=== PATIENT | male | born 2000 | race Caucasian/White ===

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

== ENCOUNTER 2021-07-24 22:15 | Inpatient (IN) | payer OTHER, SELFPAY ==
[2021-07-24 22:49] VITALS: BP 147/80; PULSE 89; RESP 20; TEMP 37.6; O2SAT 95; BMI 48.7
--- NOTE | 2021-07-24 23:35 | ED.EXTPRO ---
HPI - Extremity Problem General Chief complaint: Extremity Problem Stated complaint: tattoo infected Time Seen by Provider: 07/24/21 23:35 Source: patient Mode of arrival: ambulatory Limitations: no limitations History of Present Illness HPI Narrative: This is a 21-year-old male presenting to the emergency department with right posterior calf pain, swelling and irritation status post getting a tattoo. Patient tells me got a tattoo 2 days ago, and he has noticed that the area has become very red, swollen, warm. Subjective fevers/chills. Denies chest pain, shortness of breath, nausea, vomiting. Patient tells me that the use clean needles for this tattoo. He denies any discharge from the area. Patient tells me that he has got intact ooze in the past and this is never happened to him. Onset (ago): day(s) (3) Pain Consistency: constant Location: right Quality: burning Radiation: none Relieving factors: nothing Exacerbating factors: nothing Associated symptoms: denies other symptoms Related Data Allergies Allergy/AdvReac Type Severity Reaction Status Date / Time No Known Allergies Allergy Verified 07/24/21 22:53 Review of Systems Review of Systems: Constitutional : No Fever, No Chills, Cardiovascular : No Chest Pain, No SOB Respiratory : No Dyspnea Gastrointestinal : No abdominal pain Musculoskeletal : No Joint Swelling Skin : + rash, No skin laceration Neuro : No Weakness, No Numbness Psych : No SI/HI Yes all other systems are reviewed and are negative [facility] Past Medical History Attestation statement: The following information was validated with the patient. Source: old records reviewed and nursing notes reviewed Social History Social History Advance Directives: No Advance Directives Information Provided: No Physical Exam Vital Signs: Vital Signs: Last Vital Signs Temp 98.4 F 07/25/21 00:31 Pulse 80 07/25/21 00:31 Resp 16 07/25/21 00:31 BP 133/68 07/25/21 00:31 Pulse Ox 98 07/25/21 00:31 BMI result Body Mass Index 48.7 Vital signs stable Appearance: Alert.? Oriented X3.? No acute distress.? Head: Normocephalic, atraumatic, no step-offs or deformities Eyes: Pupils equal, round and reactive to light.? ENT: Pharynx normal.? Neck: Normal inspection.? Neck supple.? CVS: Normal heart rate and rhythm.? Pulses normal.? Respiratory: No respiratory distress.? Breath sounds normal.? Abdomen: Soft and nontender.? Skin: Skin warm and dry.? Normal skin color.? Normal skin turgor.? Extremities: No lower extremity edema.? Negative Kadeem bilaterally. 5/5 strength to bilateral upper and lower extremities + there is a large area of erythema, edema to the posterior right calf with overlying calor. Image attached there are small pustules to right calf. Neuro: Oriented X 3.? No motor deficit.? No sensory deficit. CN 2-12 intact Course Reevaluation(s) Reevaluation #1: Slightly elevated leukocytosis, with a slightly elevated BUN likely dehydration will give fluids. Lactic acid within normal limits at this time. Cellulitis continues to expand, now going to patient's ankle and going past the skin marker. Ordered Ancef and vancomycin for infection. Patient will be admitted to the hospitalist team for cellulitis. Time: 01:25 MDM - Extremity (Nontraumatic) MDM Narrative Medical decision making narrative: [id number] 21-year-old male presents with right calf pain, erythema, warmth status post getting a tattoo. Physical examination significant for Negative Kadeem bilaterally. 5/5 strength to bilateral upper and lower extremities there is a significant area of erythema, edema to the posterior right calf with overlying calor. There are also scattered pustules. History and physical examination not consistent with DVT/PE. Likely cellulitis. Area was outlines with skin marker Plan at this time is to obtain lab work, lactic, cultures. Based off patient history and physical examination infection is suspected at this time I suspect that this patient will likely be admitted to the hospital. Medical Records Attestation: I reviewed the patient's medical records. Lab Data Attestation: I reviewed the patient's lab results. Result diagrams: 07/25/21 00:40 07/25/21 00:40 Labs: Lab Results 07/25/21 07/25/21 07/25/21 Range/Units 00:40 00:40 00:41 WBC 10.9 H (4.8-10.8) X10*3/uL RBC 4.47 L (4.60-5.80) X10*6/uL Hgb 13.1 L (14.0-18.0) g/dl Hct 39.1 L (42.0-52.0) % MCV 87.5 (80.0-98.0) fL MCH 29.3 (27.0-33.0) pg MCHC 33.5 (31.0-36.0) g/dl RDW 11.9 (11.0-16.0) % Plt Count 222 (160-400) X10*3/uL MPV 10.3 (9.4-12.4) fL Immature Gran % (Auto) 0.3 (0.0-0.4) % Neut % (Auto) 57.3 (45-73) % Lymph % (Auto) 29.9 (20-40) % [place] % (Auto) 7.2 (2-11) % Eos % (Auto) 5.0 H (0-4) % Baso % (Auto) 0.3 (0-2) % Lymph # (Auto) 3.2 (1.2-4.9) X10*3/uL [place] # (Auto) 0.8 (0.1-1.2) X10*3/uL Eos # (Auto) 0.5 H (0.0-0.4) X10*3/uL Baso # (Auto) 0.0 (0.0-0.2) X10*3/uL Abs Immat Gran (auto) 0.03 (0.00-0.03) X10*3/uL Absolute Neuts (auto) 6.2 (2.0-8.3) x10*3/uL Absolute Nucleated RBC 0.000 (0.0-0.012) X10*3/uL Nucleated RBC % (auto) 0.0 (0.0-0.2) /100WBC Sodium 141 (135-145) mmol/L Potassium 3.4 (3.3-5.1) mmol/L Chloride 108 (96-108) mmol/L Carbon Dioxide 24 (22-29) mmol/L Anion Gap 12 (12-20) BUN 23 H (9-16) mg/dL Creatinine 1.22 (0.5-1.4) mg/dL Estim Creat Clear Calc 161.5 Estimated GFR > 60 Random Glucose 80 (60-115) mg/dL Lactic Acid 1.1 (0.5-2.0) mmol/L Calcium 8.9 (8.4-10.2) mg/dL COVID-19 (KAYLEE) (Negative) COVID-19 Clin Com 07/25/21 Range/Units 00:44 WBC (4.8-10.8) X10*3/uL RBC (4.60-5.80) X10*6/uL Hgb (14.0-18.0) g/dl Hct (42.0-52.0) % MCV (80.0-98.0) fL MCH (27.0-33.0) pg MCHC (31.0-36.0) g/dl RDW (11.0-16.0) % Plt Count (160-400) X10*3/uL MPV (9.4-12.4) fL Immature Gran % (Auto) (0.0-0.4) % Neut % (Auto) (45-73) % Lymph % (Auto) (20-40) % [place] % (Auto) (2-11) % Eos % (Auto) (0-4) % Baso % (Auto) (0-2) % Lymph # (Auto) (1.2-4.9) X10*3/uL [place] # (Auto) (0.1-1.2) X10*3/uL Eos # (Auto) (0.0-0.4) X10*3/uL Baso # (Auto) (0.0-0.2) X10*3/uL Abs Immat Gran (auto) (0.00-0.03) X10*3/uL Absolute Neuts (auto) (2.0-8.3) x10*3/uL Absolute Nucleated RBC (0.0-0.012) X10*3/uL Nucleated RBC % (auto) (0.0-0.2) /100WBC Sodium (135-145) mmol/L Potassium (3.3-5.1) mmol/L Chloride (96-108) mmol/L Carbon Dioxide (22-29) mmol/L Anion Gap (12-20) BUN (9-16) mg/dL Creatinine (0.5-1.4) mg/dL Estim Creat Clear Calc Estimated GFR Random Glucose (60-115) mg/dL Lactic Acid (0.5-2.0) mmol/L Calcium (8.4-10.2) mg/dL COVID-19 ([facility]LEE) Negative (Negative) COVID-19 Clin Com See Note Critical Care Time Critical Care Time Critical Care Time: No Discharge Plan Discharge Clinical Impression: Cellulitis Patient Disposition: Admitted As Inpatient
[2021-07-25 00:31] VITALS: BP 133/68; PULSE 80; RESP 16; TEMP 36.9; O2SAT 98
[2021-07-25 00:46] LABS: Basophils Percent Auto 0.3 % (0-2); Eosinophils Absolute Auto 0.5 X10*3/uL (0.0-0.4); Hematocrit 39.1 % (42.0-52.0); Hemoglobin 13.1 g/dl (14.0-18.0); Imm Gran Abs Auto 0.03 X10*3/uL (0.00-0.03); Imm Gran Pct Auto 0.3 % (0.0-0.4); Lymphocytes Absolute Auto 3.2 X10*3/uL (1.2-4.9); Lymphocytes Percent Auto 29.9 % (20-40); MANUAL DIFF FLAG NO; Mean Corpuscular HGB Conc 33.5 g/dl (31.0-36.0); Mean Corpuscular Hemoglobin 29.3 pg (27.0-33.0); Mean Corpuscular Volume 87.5 fL (80.0-98.0); Mean Platelet Volume 10.3 fL (9.4-12.4); Monocytes Absolute Auto 0.8 X10*3/uL (0.1-1.2); Monocytes Percent Auto 7.2 % (2-11); Neutrophils Absolute Auto 6.2 x10*3/uL (2.0-8.3); Neutrophils Percent Auto 57.3 % (45-73); Platelet Count 222 X10*3/uL (160-400); Red Blood Count 4.47 X10*6/uL (4.60-5.80); Red Cell Distribution Width 11.9 % (11.0-16.0); White Blood Count 10.9 X10*3/uL (4.8-10.8)
[2021-07-25 00:58] LABS: Lactic Acid 1.1 mmol/L (0.5-2.0)
[2021-07-25 01:00] LABS: Anion Gap 12 (12-20); Blood Urea Nitrogen 23 mg/dL (9-16); Calcium 8.9 mg/dL (8.4-10.2); Carbon Dioxide 24 mmol/L (22-29); Chloride 108 mmol/L (96-108); Creatinine Clr Calc Pharmacy 161.5; Estimated Glomerular Filt Rate > 60; Glucose Random 80 mg/dL (60-115); Potassium 3.4 mmol/L (3.3-5.1); Sodium 141 mmol/L (135-145)
[2021-07-25 01:04] LABS: COVID-19 Test Negative (Negative)
[2021-07-25] MEDS: 0.9 % Sodium Chloride 1,000 ML 999 ML IV (01:08)
[2021-07-25 01:18] VITALS: BP 132/73; PULSE 81; RESP 16; TEMP 36.8; O2SAT 97
--- NOTE | 2021-07-25 01:19 | P.HPHOSP_ITS ---
History of Present Illness Date of Service: 07/25/21 Chief Complaint: Skin infection This is a 21-year-old male with no significant past medical history presents to the hospital with skin redness after getting a tattoo 2 days prior to presentation. Patient reports that he got a tattoo on his right calf region abo ut 2 days ago, the following day he developed redness, and today developed increasing redness, swelling, as well as pain and therefore decided to come to the hospital. Patient reports that the redness and swelling is increasing very fast and has now reached his ankle, he denies any fever chills, denies any chest pain, no shortness of breath, no abdominal pain nausea or vomiting, no diarrhea constipation, no urinary symptoms. On arrival to the ED patient hemodynamically stable with no significant abnormal vitals Labs are significant for WBC count of 9.2, otherwise unremarkable. Given the extensive erythema, and swelling patient will be admitted for for further management with IV antibiotics Review of Systems Review of Systems: Yes all other systems are reviewed and are negative [facility] Medical History (Updated 07/25/21 @ 07:03 by Dameon Sotelo MD) No pertinent past medical history Family History (Updated 07/25/21 @ 07:03 by Dameon Sotelo MD) Other No family history of coronary artery disease Surgical History (Updated 07/25/21 @ 07:03 by Dameon Sotelo MD) No pertinent past surgical history Social History (Updated 07/25/21 @ 07:04 by Dameon Sotelo MD) Alcohol intake: current Patient Tobacco Use Status: Never used Tobacco Use of substances other than those prescribed or required for medical reasons: No Advance Directives: No Advance Directives Information Provided: No Meds Allergies Allergy/AdvReac Type Severity Reaction Status Date / Time No Known Allergies Allergy Verified 07/24/21 22:53 Active Medications: Current Medications Sodium Chloride (Ns) 1,000 mls @ 999 mls/hr IV .Q1H1M APOLLO Stop: 07/25/21 01:45 Vancomycin HCl 2,000 mg/ (Sodium Chloride) 540 mls @ 270 mls/hr IV ONCE ONE Stop: 07/25/21 02:47 Pharmacy Consult (Consult Rx Vancomycin Dosing) 1 each MISCELLANE DAILY PRN PRN Reason: Consult order Physical Exam Vital Signs and Narrative: Vital Signs: Last Vital Signs Temp 98.4 F 07/25/21 00:31 Pulse 80 07/25/21 00:31 Resp 16 07/25/21 00:31 BP 133/68 07/25/21 00:31 Pulse Ox 98 07/25/21 00:31 BMI result Body Mass Index 48.7 Const: General: cooperative and no acute distress Orientation/consciousness: patient oriented x3 Eyes: General: appearance normal, both eyes and all related structures Pupils: Equal, round and reactive pupils present Resp: Effort & Inspection: normal respiratory effort Auscultation: clear to auscultation bilaterally Cardio: Rate: regular rate Rhythm: regular rhythm GI: Palpation (GI): Soft to palpation Auscultation: normal bowel sounds Skin: Other: Erythema, tenderness, edema of the right scalp region, small pustules General skin exam: no rashes or lesions noted Neuro: General: patient oriented x3 Cranial nerves: Yes Equal, round and reactive pupils present Cognition (Neuro): normal cognition Extrem: General: Yes normal to inspection and Yes no pedal edema Results Labs CBC and Chem 7: 07/25/21 05:59 07/25/21 00:40 Labs: Laboratory Results - last 24 hr 07/25/21 07/25/21 07/25/21 00:40 00:40 00:41 MCV 87.5 MCH 29.3 MCHC 33.5 RDW 11.9 Plt Count 222 MPV 10.3 Immature Gran % (Auto) 0.3 Neut % (Auto) 57.3 Lymph % (Auto) 29.9 [place] % (Auto) 7.2 Eos % (Auto) 5.0 H Baso % (Auto) 0.3 Lymph # (Auto) 3.2 [place] # (Auto) 0.8 Eos # (Auto) 0.5 H Baso # (Auto) 0.0 Abs Immat Gran (auto) 0.03 Absolute Neuts (auto) 6.2 Absolute Nucleated RBC 0.000 Nucleated RBC % (auto) 0.0 Anion Gap 12 Estim Creat Clear Calc 161.5 Estimated GFR > 60 Random Glucose 80 Lactic Acid 1.1 Calcium 8.9 COVID-19 ([facility]LEE) COVID-19 Clin Com 07/25/21 00:44 MCV MCH MCHC RDW Plt Count MPV Immature Gran % (Auto) Neut % (Auto) Lymph % (Auto) [place] % (Auto) Eos % (Auto) Baso % (Auto) Lymph # (Auto) [place] # (Auto) Eos # (Auto) Baso # (Auto) Abs Immat Gran (auto) Absolute Neuts (auto) Absolute Nucleated RBC Nucleated RBC % (auto) Anion Gap Estim Creat Clear Calc Estimated GFR Random Glucose Lactic Acid Calcium COVID-19 (KAYLEE) Negative COVID-19 Clin Com See Note Assessment and Plan (1) Cellulitis: Status: Acute Plan 21-year-old male with no significant past medical history presents to the hospital after getting a tattoo on the right calf region # cellulitis of right lower extremity - given the extensive cellulitis, and rapid progression will treat with IV antibiotics - follow cultures DVT prophylaxis: Early ambulation Quality Stroke Does the patient have a stroke diagnosis?: No VTE Prior VTE?: No VTE Risk Level:: Medical - moderate - high VTE Device Contraindication: Treatment Not Indicated VTE Drug Contraindication: N/A - Med Ordered
--- NOTE | 2021-07-25 04:36 | PC.NURSE ---
Pt transferred from ED to ED overflow bed 11 at 0430. VSS. Pt's belongings reviewed and paper signed by me (the receiving nurse). Pt is A&OX4, pleasant and cooperative. Speech is clear and appropriate. LS-CTA. No cough or SOB. BS+. Denies N/V. RLE-red/swollen and warm with some blisters. The area was outlined in the ED and is currently within the parameters. No c/o fever/chills. Pt is c/o being cold-warm blanket given to him. No c/o pain. Will continue to monitor.
[2021-07-25 04:41] VITALS: BP 126/78; PULSE 66; RESP 20; TEMP 36.7; O2SAT 98
[2021-07-25 06:45] LABS: MANUAL DIFF FLAG NO
[2021-07-25 06:48] LABS: Basophils Percent Auto 0.2 % (0-2); Eosinophils Absolute Auto 0.3 X10*3/uL (0.0-0.4); Eosinophils Percent Auto 3.3 % (0-4); Hematocrit 37.5 % (42.0-52.0); Hemoglobin 12.5 g/dl (14.0-18.0); Imm Gran Abs Auto 0.04 X10*3/uL (0.00-0.03); Imm Gran Pct Auto 0.4 % (0.0-0.4); Lymphocytes Absolute Auto 2.7 X10*3/uL (1.2-4.9); Lymphocytes Percent Auto 29.7 % (20-40); Mean Corpuscular HGB Conc 33.3 g/dl (31.0-36.0); Mean Platelet Volume 10.4 fL (9.4-12.4); Monocytes Absolute Auto 0.7 X10*3/uL (0.1-1.2); Monocytes Percent Auto 7.1 % (2-11); Neutrophils Absolute Auto 5.4 x10*3/uL (2.0-8.3); Neutrophils Percent Auto 59.3 % (45-73); Platelet Count 210 X10*3/uL (160-400); Red Blood Count 4.31 X10*6/uL (4.60-5.80); Red Cell Distribution Width 11.9 % (11.0-16.0); White Blood Count 9.2 X10*3/uL (4.8-10.8)
[2021-07-25 07:07] LABS: Anion Gap 11 (12-20); Blood Urea Nitrogen 22 mg/dL (9-16); Calcium 8.7 mg/dL (8.4-10.2); Carbon Dioxide 27 mmol/L (22-29); Chloride 107 mmol/L (96-108); Creatinine Clr Calc Pharmacy 199.1; Estimated Glomerular Filt Rate > 60; Glucose Random 93 mg/dL (60-115); Potassium 3.9 mmol/L (3.3-5.1); Sodium 141 mmol/L (135-145)
--- NOTE | 2021-07-25 08:01 | PHA.PROG ---
Admission Date/Time: July 25, 2021 01:17 Indication: SKIN INF Weight in k.5 kg Adjusted body weight in K.9 Boring body weight in K.2 KG Obesity Dosing Indication % IBW: Serum Creatinine - Last 168 Hours 07/25/21 07/25/21 00:40 05:59 Creatinine 1.22 0.99 Estimated CrCl and GFR - Last 168 Hours 07/25/21 07/25/21 00:40 05:59 Estim Creat Clear Calc 161.5 199.1 Estimated GFR > 60 > 60 Vancomycin Loading Dose: 2000 MG X 1 IN ED Current Vancomycin Dosing Regimen: 1250 Q12H Vancomycin Monitoring using AUC goal of 400 - 600 range with trough as surrogate marker: PREDICTED AUC 555 Date and Time for next Vancomycin Level to be drawn: 07/26/21 @1000 (BEFORE 4TH DOSE) Pharmacist Comments on Vancomycin Plan: OBESE MODEL USED IN INSIGHT RX. BED WEIGHT VERIFIED WITH RN. WEIGHT INCORRECT IN SYSTEM AND ADJUSTED. Vancomycin dosing will take advantage of [employer] as a clinical decision support tool that uses Bayesian modeling to calculate individual patient's pharmacokinetic parameters and forecast the patient's drug concentration time course with the target goal AUC 24 range of 400 - 600 mg/L/hr.
--- NOTE | 2021-07-25 08:24 | P.PNIM_ITS ---
Subjective Subjective Date of Service: 07/25/21 Interval History: cellulitis Physical Exam Vital Signs: Vital Signs: Last Vital Signs Temp 98.0 F 07/25/21 04:41 Pulse 66 07/25/21 04:41 Resp 20 07/25/21 04:41 BP 126/78 07/25/21 04:41 Pulse Ox 98 07/25/21 04:41 BMI result Body Mass Index 48.7 physical exam unchanged from H&P. Objective Data Active Medications Acetaminophen (Acetaminophen 325 Mg Tablet) 650 mg PO Q6H PRN PRN Reason: Pain, Mild (Pain Scale 1-3) Docusate Sodium (Docusate Sodium 100 Mg Capsule) 100 mg PO DAILY PRN PRN Reason: Constipation Enoxaparin Sodium (Enoxaparin Sodium 40 Mg/0.4 Ml Syringe) 40 mg SUBCUT Q24H [facility] Last Admin: 07/25/21 01:29 Dose: Not Given Documented by: LORENZA Non-Admin Reason: Patient Refused Vancomycin HCl 1,250 mg/ (Sodium Chloride) 250 mls @ 166.667 mls/hr IV Q12H [facility] Ondansetron HCl (Ondansetron Hcl 4 Mg/2 Ml Vial) 4 mg IVPUSH Q8H PRN PRN Reason: Nausea and Vomiting Oxycodone HCl (Oxycodone Hcl Immed Release 5 Mg Tablet) 5 mg PO Q6H PRN PRN Reason: Pain, Severe (Pain Scale 7-10) Pharmacy Consult (Consult Rx Vancomycin Dosing) 1 each MISCELLANE DAILY PRN PRN Reason: Consult order Sodium Chloride (0.9 % Sodium Chloride Flush 3 Ml Syringe) 3 ml IVFLUSH QSHIFT [facility] Labs CBC & Chem 7: 07/25/21 05:59 07/25/21 05:59 Labs: Laboratory Results - last 24 hr 07/25/21 07/25/21 07/25/21 00:40 00:40 00:41 MCV 87.5 MCH 29.3 MCHC 33.5 RDW 11.9 Plt Count 222 MPV 10.3 Immature Gran % (Auto) 0.3 Neut % (Auto) 57.3 Lymph % (Auto) 29.9 [place] % (Auto) 7.2 Eos % (Auto) 5.0 H Baso % (Auto) 0.3 Lymph # (Auto) 3.2 [place] # (Auto) 0.8 Eos # (Auto) 0.5 H Baso # (Auto) 0.0 Abs Immat Gran (auto) 0.03 Absolute Neuts (auto) 6.2 Absolute Nucleated RBC 0.000 Nucleated RBC % (auto) 0.0 Anion Gap 12 Estim Creat Clear Calc 161.5 Estimated GFR > 60 Random Glucose 80 Lactic Acid 1.1 Calcium 8.9 COVID-19 ([facility]) COVID-19 Clin Com 07/25/21 07/25/21 07/25/21 00:44 05:59 05:59 MCV 87.0 MCH 29.0 MCHC 33.3 RDW 11.9 Plt Count 210 MPV 10.4 Immature Gran % (Auto) 0.4 Neut % (Auto) 59.3 Lymph % (Auto) 29.7 [place] % (Auto) 7.1 Eos % (Auto) 3.3 Baso % (Auto) 0.2 Lymph # (Auto) 2.7 [place] # (Auto) 0.7 Eos # (Auto) 0.3 Baso # (Auto) 0.0 Abs Immat Gran (auto) 0.04 H Absolute Neuts (auto) 5.4 Absolute Nucleated RBC 0.000 Nucleated RBC % (auto) 0.0 Anion Gap 11 L Estim Creat Clear Calc 199.1 Estimated GFR > 60 Random Glucose 93 Lactic Acid Calcium 8.7 COVID-19 ([facility]) Negative COVID-19 Clin Com See Note Assessment and Plan (1) Cellulitis: Status: Acute Plan 21-year-old male with no significant past medical history presents to the hospital after getting a tattoo on the right calf region # cellulitis of right lower extremity - given the extensive cellulitis, and rapid progression will treat with IV antibiotics - follow cultures id eval, moniter vanco trough and renal function morbid obesity : Encouraged to cut down calories and weight loss DVT prophylaxis:? s/c lovenox Quality Stroke Does the patient have a stroke diagnosis?: No VTE Prior VTE?: No VTE Risk Level:: Medical - moderate - high VTE Device Contraindication: Treatment Not Indicated VTE Drug Contraindication: N/A - Med Ordered
[2021-07-25 08:36] VITALS: BP 107/48; PULSE 54; RESP 18; O2SAT 97
--- NOTE | 2021-07-25 09:30 | PHA.MEDREC ---
Pharmacy Consult ? Medication Reconciliation Pharmacy has completed the medication reconciliation.Spoke with patient in ED overflow. Patient is not on any maintainence medications. patient states he started an antibiotic before coming to the hospital and took 1 dose. He states he filled this antibiotic at [facility] in [place] but they do not have any medications in his profile.
[2021-07-25] MEDS: vancomycin HCL 1,250 MG in 0.9 % Sodium Chloride 250 ML 166.67 MG IV (12:25)
[2021-07-25] MEDS: 0.9 % Sodium Chloride Flush 3 ML SYRINGE IVFLUSH (12:40)
[2021-07-25 13:32] LABS: MRSA Nasal PCR NEGATIVE (Negative); SA Nasal PCR POSITIVE (Negative)
[2021-07-25 14:52] VITALS: BP 124/66; PULSE 72; RESP 18; TEMP 36.8; O2SAT 98
--- NOTE | 2021-07-25 17:54 | PC.NURSE ---
report given to NALLELY Centeno
[2021-07-25 20:00] VITALS: BP 135/77; PULSE 73; RESP 18; TEMP 36.3; O2SAT 96
[2021-07-26] VITALS: BP 124/57; PULSE 63; RESP 18; TEMP 36.8; O2SAT 96
[2021-07-26] MEDS: vancomycin HCL 1,250 MG in 0.9 % Sodium Chloride 250 ML 166.67 MG IV (00:24)
[2021-07-26] MEDS: 0.9 % Sodium Chloride Flush 3 ML SYRINGE IVFLUSH ×3 (00:24→16:53)
[2021-07-26] MEDS: Enoxaparin Sodium 40 MG/0.4 ML SYRINGE SUBCUT (02:02)
[2021-07-26 04:00] VITALS: BP 96/54; PULSE 54; RESP 18; TEMP 36.1; O2SAT 97
[2021-07-26 06:26] LABS: Creatinine Clr Calc Pharmacy 245.8; Estimated Glomerular Filt Rate > 60
--- NOTE | 2021-07-26 07:39 | P.PNIM_ITS ---
Subjective Subjective Date of Service: 07/26/21 Interval History: cellulitis Review of Systems Cellulitis area is still has pain and erythema- minimal improvement denies any chest pain or shortness of breath or abdominal pain or fever or chills. Physical Exam Vital Signs: Vital Signs: Last Vital Signs Temp 97 F 07/26/21 04:00 Pulse 54 07/26/21 04:00 Resp 18 07/26/21 04:00 BP 96/54 L 07/26/21 04:00 Pulse Ox 97 07/26/21 04:00 BMI result Body Mass Index 48.7 Appearance: Alert.? Oriented X3.? not in distress.? cvs: rrr, [id number] , no murmur res: clear to auscultation ,no rhonchii or wheezing abd: no rebound or guarding ,nt, bs present. ext pulses present , no cyanosis -right leg:extensive erythema, and swelling?. neuro: axo3 , nonfocal. Objective Data Active Medications Acetaminophen (Acetaminophen 325 Mg Tablet) 650 mg PO Q6H PRN PRN Reason: Pain, Mild (Pain Scale 1-3) Docusate Sodium (Docusate Sodium 100 Mg Capsule) 100 mg PO DAILY PRN PRN Reason: Constipation Enoxaparin Sodium (Enoxaparin Sodium 40 Mg/0.4 Ml Syringe) 40 mg SUBCUT Q24H [facility] Last Admin: 07/26/21 02:02 Dose: 40 mg Documented by: GUILLAUME Vancomycin HCl 1,250 mg/ (Sodium Chloride) 250 mls @ 166.667 mls/hr IV Q12H [facility] Last Infusion: 07/26/21 02:00 Dose: 0 mls/hr Documented by: GUILLAUME Ondansetron HCl (Ondansetron Hcl 4 Mg/2 Ml Vial) 4 mg IVPUSH Q8H PRN PRN Reason: Nausea and Vomiting Oxycodone HCl (Oxycodone Hcl Immed Release 5 Mg Tablet) 5 mg PO Q6H PRN PRN Reason: Pain, Severe (Pain Scale 7-10) Pharmacy Consult (Consult Rx Vancomycin Dosing) 1 each MISCELLANE DAILY PRN PRN Reason: Consult order Sodium Chloride (0.9 % Sodium Chloride Flush 3 Ml Syringe) 3 ml IVFLUSH QSHIFT [facility] Last Admin: 07/26/21 00:24 Dose: 3 ml Documented by: GUILLAUME Labs CBC & Chem 7: 07/25/21 05:59 07/26/21 05:40 Labs: Laboratory Results - last 24 hr 07/25/21 07/26/21 12:05 05:40 Estim Creat Clear Calc 245.8 Estimated GFR > 60 Nasal Screen MRSA (PCR) NEGATIVE Nasal S. aureus Screen POSITIVE A Nasal MRSA/S.aureus Interp SEE NOTE Microbiology Microbiology Results: Microbiology 07/25/21 00:44 Blood Culture - Preliminary Blood - Venous No growth after 24 hours. 07/25/21 00:40 Blood Culture - Preliminary Blood - Venous No growth after 24 hours. Assessment and Plan (1) Cellulitis: Status: Acute Plan 21-year-old male with no significant past medical history presents to the hospital after getting a tattoo on the right calf region cellulitis of right lower extremity - given the extensive cellulitis, and rapid progression will treat with IV antibiotics - follow cultures. morbid obesity :? Encouraged to cut down calories and weight loss DVT prophylaxis:? Early ambulation Quality Stroke Does the patient have a stroke diagnosis?: No VTE Prior VTE?: No VTE Risk Level:: Medical - moderate - high VTE Device Contraindication: Treatment Not Indicated VTE Drug Contraindication: N/A - Med Ordered
[2021-07-26 11:15] LABS: Vancomycin Trough 6.2 mcg/mL (10.0-20.0)
--- NOTE | 2021-07-26 11:36 | HE.PHANOTE ---
Vancomycin Dosing Addendum Vancomycin trough 6.2, increasing dose to 1750 mg q12h to get patient to therapeutic AUC. Predicted auc of 470. Will get a repeat level tomorrow morning after 2 doses and reasses. Cr trending down.
--- NOTE | 2021-07-26 11:53 | MHC.CM.PN ---
EMR REVIEWED, PT ADMITTED W/CELLULITIS OF RLE AFTER HAVING A TATTOO, CM MET W/PT WHO REPORTS HE LIVES W/HIS MOTHER, INDEP W/ALL CARE, NO DME AND NO HOME SERVICES, PT DENIES COVID VACCINE, HAS NO PCP AND DECLINES ASSISTANCE W/SIGNING UP FOR PCP, PT REPORTS HIS MOTHER HAS A NAME OF A PCP AND WILL DO IT W/HER. PT EDUCATED ON HCP'S HOWEVER DECLINES TO COMPLETE. D/C PLAN: HOME NO SERVICES, CAR IN C LOT AND WILL SELF TRANSPORT
[2021-07-26 12:09] VITALS: BP 128/70; PULSE 82; RESP 18; TEMP 36.1; O2SAT 98
--- NOTE | 2021-07-26 12:33 | P.CNID_ITS ---
History of Present Illness Data of Consult Service Date: 07/26/21 Requesting physician: Hadley Arrieta Primary Care Provider: Unknown Physician HPI Reason for consult: right lower extremity cellulitis post tattoo He presents with redness inner calf area two days after getting tattoo. He has felt chilly but no temperature elevation He thought initially he was allergic to pink ink on tattoo. Review of Systems Review of Systems: Yes all other systems are reviewed and are negative PMFSH Past Medical History Medical History No pertinent past medical history Family History Family History Other No family history of coronary artery disease Family history: reviewed and not pertinent Surgical History Surgical History No pertinent past surgical history Social History Social History Household Members: Other Household Members Other:: mother Housing: Apartment Alcohol intake: current Patient Tobacco Use Status: Never used Tobacco service: No Current occupational status: employed Meds Allergies Allergy/AdvReac Type Severity Reaction Status Date / Time No Known Allergies Allergy Verified 07/24/21 22:53 Active Medications: Current Medications Acetaminophen (Acetaminophen 325 Mg Tablet) 650 mg PO Q6H PRN PRN Reason: Pain, Mild (Pain Scale 1-3) Docusate Sodium (Docusate Sodium 100 Mg Capsule) 100 mg PO DAILY PRN PRN Reason: Constipation Enoxaparin Sodium (Enoxaparin Sodium 40 Mg/0.4 Ml Syringe) 40 mg SUBCUT Q24H [facility] Last Admin: 07/26/21 02:02 Dose: 40 mg Documented by: Vancomycin HCl 1,000 mg/Vancomycin HCl 750 mg/ Sodium Chloride 535 mls @ 267.5 mls/hr IV Q12H [facility] Ondansetron HCl (Ondansetron Hcl 4 Mg/2 Ml Vial) 4 mg IVPUSH Q8H PRN PRN Reason: Nausea and Vomiting Oxycodone HCl (Oxycodone Hcl Immed Release 5 Mg Tablet) 5 mg PO Q6H PRN PRN Reason: Pain, Severe (Pain Scale 7-10) Pharmacy Consult (Consult Rx Vancomycin Dosing) 1 each MISCELLANE DAILY PRN PRN Reason: Consult order Sodium Chloride (0.9 % Sodium Chloride Flush 3 Ml Syringe) 3 ml IVFLUSH [facility] Last Admin: 07/26/21 09:28 Dose: 3 ml Documented by: Home Medications Medication Instructions Recorded Confirmed Last Taken Type No Known Home Meds 07/25/21 07/25/21 Unknown History Physical Exam Vital Signs: Vital Signs: Last Vital Signs Temp 96.9 F 07/26/21 12:09 Pulse 82 07/26/21 12:09 Resp 18 07/26/21 12:09 BP 128/70 07/26/21 12:09 Pulse Ox 98 07/26/21 12:09 BMI result Body Mass Index 48.7 Const: General: cooperative Eyes: General: appearance normal, both eyes and all related structures Resp: Effort & Inspection: normal respiratory effort Cardio: Rate: regular rate Rhythm: regular rhythm GI: Palpation (GI): Soft to palpation and nontender Extrem: Other: redness in patches surrounding tattoo area Results Labs CBC & Chem 7: 07/25/21 05:59 07/26/21 05:40 Labs: BMP 07/26/21 05:40 Creatinine 0.84 Microbiology Microbiology Results: Microbiology 07/25/21 00:44 Blood - Venous Blood Culture - Preliminary No growth after 24 hours. 07/25/21 00:40 Blood - Venous Blood Culture - Preliminary No growth after 24 hours. Assessment and Plan (1) Cellulitis: Status: Acute He has probable staph or strep infection caused by break in skin likely. He has vulnerable area due to swelling related to weather and BMI. He has no tinea pedis. Plan Continue Vancomycin another day or two until improved and then po Doxycycline 100 mg bid for fourteen days
[2021-07-26] MEDS: vancomycin HCL 1,000 MG, vancomycin HCL 750 MG in 0.9 % Sodium Chloride 500 ML 267.5 MG IV (14:46)
[2021-07-26 15:52] VITALS: BP 136/70; PULSE 67; RESP 18; TEMP 36.6; O2SAT 96
[2021-07-26 19:23] VITALS: BP 159/87; PULSE 62; RESP 18; TEMP 36.1; O2SAT 98
[2021-07-26 23:42] VITALS: BP 132/60; PULSE 68; RESP 18; TEMP 36.9; O2SAT 97
[2021-07-27] MEDS: vancomycin HCL 1,000 MG, vancomycin HCL 750 MG in 0.9 % Sodium Chloride 500 ML 267.5 MG IV ×3 (00:32→23:32)
[2021-07-27] MEDS: Enoxaparin Sodium 40 MG/0.4 ML SYRINGE SUBCUT (01:09)
[2021-07-27] MEDS: 0.9 % Sodium Chloride Flush 3 ML SYRINGE IVFLUSH ×4 (01:09→23:33)
[2021-07-27 03:19] VITALS: BP 117/62; PULSE 81; RESP 18; TEMP 36.6; O2SAT 97
[2021-07-27 06:16] LABS: Anion Gap 11 (12-20); Blood Urea Nitrogen 16 mg/dL (9-16); Carbon Dioxide 28 mmol/L (22-29); Chloride 108 mmol/L (96-108); Creatinine Clr Calc Pharmacy 242.9; Estimated Glomerular Filt Rate > 60; Glucose Random 96 mg/dL (60-115); Potassium 4.6 mmol/L (3.3-5.1); Sodium 142 mmol/L (135-145)
[2021-07-27 10:29] LABS: Vancomycin Trough 8.7 mcg/mL (10.0-20.0)
--- NOTE | 2021-07-27 10:35 | HE.PHANOTE ---
VANCOMYCIN ADDENDUM: LEVEL INCREASED TO 8.7 AFTER 2 DOSES OF 1750 MG, WILL RECHECK LEVEL CHANDLER, SCR REMAINS STEADY 0.85, CONTINUE SAME REGIMEN, PREDICTED AUC OF 470
[2021-07-27 11:10] VITALS: BP 140/77; PULSE 69; RESP 18; TEMP 36.6; O2SAT 100
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
[2021-07-27 16:00] VITALS: BP 142/82; PULSE 52; RESP 16; TEMP 36.2; O2SAT 98
[2021-07-27 19:46] VITALS: BP 146/67; PULSE 109; RESP 18; TEMP 36.4; O2SAT 96
[2021-07-27 23:38] VITALS: BP 137/58; PULSE 56; RESP 18; TEMP 36.3; O2SAT 98
[2021-07-28] MEDS: Enoxaparin Sodium 40 MG/0.4 ML SYRINGE SUBCUT (00:46)
[2021-07-28 03:30] VITALS: BP 120/60; PULSE 52; RESP 18; TEMP 36.6; O2SAT 94
[2021-07-28 06:59] LABS: Creatinine Clr Calc Pharmacy 219.7; Estimated Glomerular Filt Rate > 60
[2021-07-28 08:00] VITALS: BP 119/62; PULSE 77; RESP 18; TEMP 36.6; O2SAT 98
[2021-07-28] MEDS: 0.9 % Sodium Chloride Flush 3 ML SYRINGE IVFLUSH (10:26)
[2021-07-28 10:51] LABS: Vancomycin Random 8.9 mcg/mL (15-20)
--- NOTE | 2021-07-28 11:06 | P.DS_ITS ---
DS: Providers Provider Date of Service: 07/28/21 Date of admission: 07/25/21 01:17 Date of discharge: 07/28/21 Primary care physician: Unknown Physician Consults: 07/25/21 15:31 Consult to Infectious Diseases Routine Consulting Provider: Asiya Tyson Reason for consultation: cellulitis Has provider been notified: No DS: Diagnosis Discharge Diagnosis (1) Cellulitis: Status: Acute DS: Summary Hospital Course Hospital Course: 21-year-old male with no significant past medical history presents to the hospital with skin redness after getting a tattoo 2 days prior to presentation.? Patient reports that he got a tattoo on his right calf region about 2 days ago, the following day he developed redness, and today developed increasing redness, swelling, as well as pain and therefore decided to come to the hospital.? Patient reports that the redness and swelling is increasing very fast and has now reached his ankle. Hospital course Admitted to [facility] and started on vancomycin and Zosyn; within 72 hours there was a marked improvement in his lower extremity erythema. Blood cultures x2 negative. Seen in consultation by Infectious Disease who recommended 14 days of oral doxycycline upon discharge. At this point is medically acceptable for discharge. He has been encouraged to wait at least 1 week after next had 2 before playing sports Time Spent with Patient Time attestation: Total time spent providing and/or coordinating discharge services: Discharge coordination time: Greater than 30 minutes Quality: Safe Use of Opioids Does Pt have an Active Cancer Diagnosis on the Problem List?: No Quality: Stroke Does the patient have a stroke diagnosis?: No Physical Exam Vital Signs: Vital Signs: Last Vital Signs Temp 97.9 F 07/28/21 08:00 Pulse 77 07/28/21 08:00 Resp 18 07/28/21 08:00 BP 119/62 07/28/21 08:00 Pulse Ox 98 07/28/21 08:00 O2 Del Method 07/28/21 08:00 BMI result Body Mass Index 48.7 Const: Other: no acute distress Resp: Other: clear to auscultation bilaterally no rales rhonchi or wheezes Cardio: Other: no S4; positive S1-S2; no S3 murmurs rubs gallops Skin: Other: erythema improved right lower extremity. No warmth Extrem: Other: no edema DS: Data Data Completed and Pending Labs on day of discharge: Laboratory Results - last 24 hr 07/28/21 07/28/21 06:13 10:11 Creatinine 0.94 Estim Creat Clear Calc 219.7 Estimated GFR > 60 Random Vancomycin 8.9 L Preliminary micro results at discharge 07/25/21 00:44 Blood Culture - Preliminary Blood - Venous No growth after 48 hours. 07/25/21 00:40 Blood Culture - Preliminary Blood - Venous No growth after 48 hours. Discharge Plan Discharge Patient Disposition: Home, Self-Care Discharge Diagnosis: RLE cellulitis Referrals: Physician,Richard J [Primary Care Provider] - 1 Week Discharge Medications: New doxycycline hyclate 100 mg tablet 100 mg PO BID Qty: 28 0RF Discharge Orders: Discharge Order (Routine); Ordered 07/28/21 Ordered By: Mor Price Diet: advance to usual diet Activity on Discharge: As tolerated Stand Alone Forms: Patient Portal Discharge page Care Plan Goals: complete a course of doxycycline Health Concerns: if future tattoos. . . Would wait 1 week after tattoos before playing sports Plan of Treatment: follow-up with PCP as needed Assessment: see discharge summary
--- NOTE | 2021-07-28 11:11 | HE.PHANOTE ---
Vancomycin Dosing Addendum Vancomy trough 8.9, subtherapeutic AUC. Giving a 1x dose of 1750 mg and then changing the regimen to 1500 mg q8h. Will recheck level on 07/29/21 @1000
--- NOTE | 2021-07-28 11:35 | MHC.CM.PN ---
HOME - SELF CARE RN AWARE OF PLAN.
[2021-07-28 12:00] VITALS: BP 131/63; PULSE 60; RESP 18; TEMP 36.9; O2SAT 98
[2021-07-28] MEDS: vancomycin HCL 1,000 MG, vancomycin HCL 750 MG in 0.9 % Sodium Chloride 500 ML 267.5 MG IV (12:28)
== END 2021-07-28 14:45 | disposition home or self-care (01) | DRG 383 ==
LOC: HO.ED 07-25 00:52 → HO.EDOVER 07-25 01:33 → HO.S3 07-25 17:42
PROVIDERS: Internal Medicine; Physician Assistant; Admitting Provider Internal Medicine; Emergency Provider Emergency Medicine Emergency Medical Services; Visit Provider Hospitalist
DX: L03.115 Cellulitis of right lower limb (principal); Z68.43 Body mass index [BMI] 50.0-59.9, adult; E66.01 Morbid (severe) obesity due to excess calories; E86.0 Dehydration; Z71.3 Dietary counseling and surveillance; Z20.822 Contact with and (suspected) exposure to COVID-19
CPT/HCPCS: 36415; 80048; 80202; 82565; 83605; 85025; 87040; 87635; 87640; 87641; 96361; 96374; 96375; 99218; 99285; J0690; J1650; J3370

== ENCOUNTER 2021-09-09 19:33 | Emergency (ER) | payer OTHER, SELFPAY ==
--- NOTE | ~2021-09-09 | XR_ITS ---
EXAMINATION: XR CLAVICLE, RIGHT CLINICAL INFORMATION: Limited range of motion, COMPARISON: None TECHNIQUE: Two views of the right clavicle. FINDINGS: The clavicle is intact. The bones and soft tissues are normal. No fracture. Mild widening of the acromioclavicular joint. XR/XR clavicle RT IMPRESSION: Mild widening of the acromioclavicular joint suspicious for injury.
[2021-09-09 19:34] VITALS: BP 145/91; PULSE 100; RESP 18; O2SAT 96; BMI 47.5
[2021-09-09] MEDS: Acetaminophen 325 MG TABLET 975 MG PO (19:40)
--- NOTE | 2021-09-09 21:28 | ED.EXTPRO ---
HPI - Extremity Problem General Chief complaint: Extremity Injury, Upper Stated complaint: collar bone inj Time Seen by Provider: 09/09/21 21:21 Source: patient and family Mode of arrival: ambulatory Limitations: no limitations History of Present Illness Complaint: extremity pain Onset (ago): day(s) (2) Pain Consistency: constant Location: right and upper extremity Quality: aching Radiation: none Relieving factors: immobilization Exacerbating factors: range of motion and palpation Associated symptoms: denies other symptoms Context: other (played in sports tournament) Related Data Previous Rx's Medication Instructions Recorded doxycycline hyclate 100 mg tablet 100 mg PO BID #28 tabs 07/28/21 cyclobenzaprine 10 mg tablet 10 mg PO TID PRN muscle spasm #14 09/09/21 tabs ibuprofen 600 mg tablet 600 mg PO Q6H PRN pain #30 tabs 09/09/21 Allergies Allergy/AdvReac Type Severity Reaction Status Date / Time No Known Allergies Allergy Verified 07/24/21 22:53 Review of Systems Review of Systems: Constitutional : No Fever, No Chills ENT/Mouth : No Ear Pain, No Hoarseness, No sore throat Eyes: No Eye Pain, No Swelling, No Redness, No Foreign Body Cardiovascular : No Chest Pain, No SOB Respiratory : No Cough, No Dyspnea Gastrointestinal : No Nausea, No Vomiting, No Diarrhea, No abdominal Pain Genitourinary : No Dysuria, No Hematuria Musculoskeletal : positive joint pain, No Myalgias, No Joint Swelling Skin : No Skin lacerations, No rash Neuro : No Weakness, No Numbness PMFSH Past Medical History Attestation statement: The following information was validated with the patient. Medical History (Updated 09/09/21 @ 21:52 by Estrellita Phillips DO) No pertinent past medical history Surgical History (Updated 09/09/21 @ 21:52 by Estrellita Phillips DO) No pertinent past surgical history Status post labral repair of shoulder Family History Family History Other No family history of coronary artery disease Social History Social History Household Members: Other Household Members Other:: mother Housing: Apartment Alcohol intake: current Patient Tobacco Use Status: Never used Tobacco Advance Directives: No Advance Directives Information Provided: No service: No Current occupational status: employed Physical Exam Vital Signs: Vital Signs: Last Vital Signs Pulse 100 09/09/21 19:34 Resp 18 09/09/21 19:34 BP 145/91 H 09/09/21 19:34 Pulse Ox 96 09/09/21 19:34 O2 Del Method 09/09/21 19:34 BMI result Body Mass Index 47.5 Appearance: Alert. Oriented X3. No acute distress. Eyes: Pupils equal, round and reactive to light. ENT: Pharynx normal. Neck: Normal inspection. Neck supple. CVS: Normal heart rate and rhythm. Pulses normal. Respiratory: No respiratory distress. Breath sounds normal. Abdomen: Soft and nontender. Skin: Skin warm and dry. Normal skin color. Normal skin turgor. Extremities: No lower extremity edema. R shoulder ttp along AC joint, distal NV intact Neuro: Oriented X 3. No motor deficit. No sensory deficit. MDM - Extremity (Nontraumatic) MDM Narrative Medical decision making narrative: 21 yo male with R shoulder injury and pain pain at shoulder itself distal NV intact - xray shows AC widening will sling and refer to orthopedics, patient played in sports tournament unknown injury Procedures Orthopedic Splinting/Casting Injury #1: Side: right Upper Extremity Injury Location: shoulder Upper Extremity Immobilizer: sling/shoulder immobilizer Additional Comments: NV intact post sling Discharge Plan Discharge Clinical Impression: Acromioclavicular (AC) joint injury Qualifiers: Encounter type: initial encounter Laterality: right Qualified Code(s): S49.91XA - Unspecified injury of right shoulder and upper arm, initial encounter Patient Disposition: Home, Self-Care Instructions: Acromioclavicular Separation (ED), How to Use a Sling (ED) Additional Instructions: return to ED for any worsening symptoms or concerns TECHNIQUE: Two views of the right clavicle. FINDINGS: The clavicle is intact. The bones and soft tissues are normal. No fracture. Mild widening of the acromioclavicular joint. XR/XR clavicle RT IMPRESSION: Mild widening of the acromioclavicular joint suspicious for injury. Prescriptions: New cyclobenzaprine 10 mg tablet 10 mg PO TID PRN (Reason: muscle spasm) Qty: 14 0RF ibuprofen 600 mg tablet 600 mg PO Q6H PRN (Reason: pain) Qty: 30 0RF No Action doxycycline hyclate 100 mg tablet 100 mg PO BID Qty: 28 0RF Referrals: Lola Washington PA-C [Physician Water Pump Installer] - 10 days Stand Alone Forms: Work/School Release
== END 2021-09-09 21:56 | disposition home or self-care (01) ==
PROVIDERS: Emergency Provider Emergency Medicine
DX: S49.91XA Unspecified injury of right shoulder and upper arm, initial encounter (principal); W01.0XXA Fall on same level from slipping, tripping and stumbling without subsequent striking against object, initial encounter; Y93.61 Activity, american tackle football; Y92.321 Football field as the place of occurrence of the external cause; Y99.9 Unspecified external cause status
CPT/HCPCS: 73000; 99283

== ENCOUNTER → 2021-10-07 14:56 | Outpatient (BNVA) | payer OTHER, SELFPAY | PROVIDERS: Visit Provider Physician Assistant | DX: S43.101A Unspecified dislocation of right acromioclavicular joint, initial encounter (principal) | CPT/HCPCS: 99202 ==

== ENCOUNTER 2022-03-14 15:58 | Emergency (ER) | payer OTHER, SELFPAY ==
[2022-03-14 16:08] VITALS: BP 169/83; PULSE 60; RESP 18; TEMP 36.8; O2SAT 98; BMI 43.7
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
== END 2022-03-14 16:19 | disposition home or self-care (01) ==
PROVIDERS: Emergency Provider Emergency Medicine
DX: S16.1XXA Strain of muscle, fascia and tendon at neck level, initial encounter (principal); S39.012A Strain of muscle, fascia and tendon of lower back, initial encounter; S80.02XA Contusion of left knee, initial encounter; V48.5XXA Car driver injured in noncollision transport accident in traffic accident, initial encounter; Y93.89 Activity, other specified; Y92.411 Interstate highway as the place of occurrence of the external cause; Y99.9 Unspecified external cause status
CPT/HCPCS: 99281; 99283

== ENCOUNTER 2022-03-30 18:20 | Emergency (ER) | payer OTHER, SELFPAY ==
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
[2022-03-30 18:39] VITALS: BP 158/88; PULSE 65; RESP 19; TEMP 36.6; O2SAT 100; BMI 47.5
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
== END 2022-03-30 20:04 | disposition home or self-care (01) ==
PROVIDERS: Emergency Provider Emergency Medicine
DX: M54.6 Pain in thoracic spine (principal); S29.012D Strain of muscle and tendon of back wall of thorax, subsequent encounter; V43.52XD Car driver injured in collision with other type car in traffic accident, subsequent encounter; E66.01 Morbid (severe) obesity due to excess calories; Z68.42 Body mass index [BMI] 45.0-49.9, adult
CPT/HCPCS: 72070; 99282; 99283

== ENCOUNTER 2022-11-07 14:06 | Emergency (ER) | payer OTHER, SELFPAY ==
--- NOTE | ~2022-11-07 | US_ITS ---
EXAMINATION: US VENOUS ULTRASOUND WITH DOPPLER LOWER EXTREMITY, RIGHT CLINICAL INFORMATION: Swelling and pain. COMPARISON: None available. TECHNIQUE: Ultrasound of the deep veins is performed from the hip to the calf with compression sonography and color and pulse Doppler assessment. Spectral analysis with color-flow imaging is performed. FINDINGS: There is normal venous compression and respiratory variation and augmented flow. The visualized common femoral vein, superficial femoral vein, profunda femoral vein, popliteal vein, and the trifurcation region shows no evidence of deep venous thrombosis. The right peroneal vein is not visualized. The posterior tibial vein is patent. There is no significant popliteal fossa cyst. If the patient's symptoms persist, followup ultrasound in 5 days 7 days might be of value to exclude proximal propagation from a non-visualized calf vein. US/US venous duplex LE RT IMPRESSION: No DVT demonstrated in the right lower extremity.
[2022-11-07 15:07] VITALS: BP 163/91; PULSE 69; RESP 18; TEMP 36.3; O2SAT 98; BMI 53.9
--- NOTE | 2022-11-07 15:10 | ED_ITS ---
HPI - Extremity Problem General Chief complaint: Extremity Injury, Lower Stated complaint: Cellulitis R leg Time Seen by Provider: 11/07/22 16:18 Source: patient Mode of arrival: ambulatory Limitations: no limitations History of Present Illness HPI Narrative: 22 yold male presents to ED for possible right leg cellulitis. Patient states he had his right whitfield 4 days ago and now right leg is slightly swollen with some redness. Denies any fever, chills, chest pain, shortness of breath, pleurisy, recent long travel, or recent surgery. Patient states history of cellulitis in the past in the same leg. Related Data Previous Rx's Medication Instructions Recorded doxycycline hyclate 100 mg tablet 100 mg PO BID #28 tabs 07/28/21 cyclobenzaprine 10 mg tablet 10 mg PO TID PRN muscle spasm #14 09/09/21 tabs ibuprofen 600 mg tablet 600 mg PO Q6H PRN pain #30 tabs 09/09/21 cyclobenzaprine 10 mg tablet 10 mg PO TID PRN muscle spasm #14 03/14/22 tabs ibuprofen 800 mg tablet 800 mg PO Q8H PRN pain #20 tabs 03/14/22 lidocaine 5 % topical patch 1 patch topical DAILY #15 ea 03/14/22 methocarbamol 750 mg tablet 750 mg PO Q8H PRN muscle spasm #15 03/30/22 tabs cephalexin 500 mg capsule 500 mg PO QID 7 days #28 caps 11/07/22 doxycycline hyclate 100 mg capsule 100 mg PO BID 7 days #14 caps 11/07/22 Allergies Allergy/AdvReac Type Severity Reaction Status Date / Time No Known Allergies Allergy Verified 11/07/22 15:07 Review of Systems 2 Review of Systems: Right leg redness and swelling Yes all other systems are reviewed and are negative [facility] Past Medical History Medical History No pertinent past medical history Surgical History No pertinent past surgical history Status post labral repair of shoulder Family History Family History Other No family history of coronary artery disease Social History Social History Household Members: Other Household Members Other:: mother Housing: Apartment Alcohol intake: current Alcohol intake frequency: does not drink Patient Tobacco Use Status: Never used Tobacco Smoked in Last 30 Days: No Use of substances other than those prescribed or required for medical reasons: No Advance Directives: No Advance Directives Information Provided: No service: No Current occupational status: employed Physical Exam 2 Vital Signs: Vital Signs: Last Vital Signs Temp 97.4 F 11/07/22 15:07 Pulse 69 11/07/22 15:07 Resp 18 11/07/22 15:07 BP 163/91 H 11/07/22 15:07 Pulse Ox 98 11/07/22 15:07 O2 Del Method Room Air 11/07/22 15:07 BMI result Body Mass Index 53.9 Const: General: cooperative, healthy appearing, comfortable, no acute distress, well developed, alert, awake and Physically active O rientation/consciousness: oriented to person, oriented to place, oriented to time and patient oriented x3 HEENT: Head: Yes normal to inspection, Yes No palpable skull fracture present, Yes normocephalic, Yes atraumatic and No abrasion Eyes: General: appearance normal, both eyes and all related structures Neck: Neck: Yes normal visual inspection, Yes full ROM, Yes no lymphadenopathy, Yes no meningeal signs, Yes trachea midline, Yes supple, No anterior neck swelling and No tender Chest: Chest palpation & inspection: normal inspection of the chest and normal palpation of entire chest wall Resp: Effort & Inspection: normal respiratory effort and able to speak in complete sentences Auscultation: clear to auscultation bilaterally Cardio: Jugular venous distension: no JVD Heart sounds: S1 normal heart sound present and S2 normal heart sound present GI: Inspection: Yes normal to inspection and No abdominal wall ecchymosis P alpation (GI): Soft to palpation, not firm, nontender, no guarding and not rigid : General: No CVA tenderness and Yes no CVA tenderness Back/Spine/Pelvis: Back: no CVA tenderness, No CVA tenderness and No back tenderness Skin: General skin exam: no rashes or lesions noted, elasticity normal and turgor normal Neuro: General: oriented to person, oriented to place, oriented to time, patient oriented x3, gait normal, tone normal, moves all extremities, Normal light touch and pain sensation, no meningeal signs, no focal motor deficits, CN's II-XI intact bilaterally and normal sensation to monofilament Extrem: General: Yes full ROM Upper/lower leg/hip images: 1. slight rednessand slight swelling with pitting edema. Motor/ neuro/vascular exam intact Psych: Appearance: grossly normal, well kempt and not disheveled Course Course Course Narrative: RME - 22 yo male with history of obesity, hx RLE cellulitis in July requiring admission presents to the ER for evaluation of RLE pain and swelling after he sustained a minor lac to the anterior lower leg 4 days ago. Plan: venous duplex to r/o DVT. no major cellulitic changes on exam Medical Decision Making Medical Decision Making MDM Narrative: 22-year-old male history of right leg cellulitis presents to ED right leg slight redness slight swelling after small laceration to whitfield. Patient denies any chest pain shortness of breath. Patient denies any recent long travel or recent surgery. Patient denies any pleurisy. Patient denies any fever or chills. Ultrasound right lower extremity ordered. 16:45: right lower extremity ultrasound negative for DVT. Patient will be discharged with antibiotics. Patient vital signs are stable. Early cellulitis. Right lower extremity not really warm negative for crepitus. Not suspecting osteomyelitis, necrotizing fasciitis, lymphangitis, compartment syndrome, or fracture. Negative ecchymosis Differential Diagnosis Differential Diagnoses: The differential diagnosis associated with the presentation includes ( osteomyelitis, necrotizing fasciitis, lymphangitis, compartment syndrome, fracture, cellulitis) Admission/Observation Consideration of admission/observation: Escalation of care including admission/observation considered Independent Interpretation I performed an independent interpretation of an: Ultrasound Radiology Impression Discussion of test interpretation with radiology: I have reviewed the radiologist's reading. External Record Review External record reviewed: Other (Prior ED visit) Tests considered The following testing was considered but not selected: labs x-ray Prescription Management I considered prescription management with: Antibiotic Discharge Plan Discharge Clinical Impression: Cellulitis Patient Disposition: Home, Self-Care Instructions: Cellulitis (ED), Warm Compress or Soak (ED) Additional Instructions: return to the ED immediately for increased swelling, worsening redness, red streaks, calf pain, chest pain, shortness of breath, foul odor, wheezing, tractable fever, chills, or any other concerning symptoms. Please follow-up with your primary care provider soon as possible. Prescriptions: New cephalexin 500 mg capsule 500 mg PO QID 7 Days Qty: 28 0RF doxycycline hyclate 100 mg capsule 100 mg PO BID 7 Days Qty: 14 0RF No Action doxycycline hyclate 100 mg tablet 100 mg PO BID Qty: 28 0RF cyclobenzaprine 10 mg tablet 10 mg PO TID PRN (Reason: muscle spasm) Qty: 14 0RF ibuprofen 600 mg tablet 600 mg PO Q6H PRN (Reason: pain) Qty: 30 0RF cyclobenzaprine 10 mg tablet 10 mg PO TID PRN (Reason: muscle spasm) Qty: 14 0RF ibuprofen 800 mg tablet 800 mg PO Q8H PRN (Reason: pain) Qty: 20 0RF lidocaine 5 % adhesive patch,medicated 1 patch topical DAILY Qty: 15 0RF Rx Instructions: leave on most painful area for up to 12 hrs methocarbamol 750 mg tablet 750 mg PO Q8H PRN (Reason: muscle spasm) Qty: 15 0RF Stand Alone Forms: Work/School Release Interventions: ED Discharge Assessment Last Done: 11/07/22 17:03 Discharge Date/Time: 11/07/22 17:04 Print Language: Upper Sorbian
== END 2022-11-07 17:04 | disposition home or self-care (01) ==
PROVIDERS: Emergency Provider Internal Medicine
DX: L03.115 Cellulitis of right lower limb (principal); R60.0 Localized edema; Z79.899 Other long term (current) drug therapy
CPT/HCPCS: 93971; 99284

== ENCOUNTER 2023-05-21 20:28 | Emergency (ER) | payer OTHER, SELFPAY ==
[2023-05-21 20:54] VITALS: BP 143/83; PULSE 67; RESP 20; TEMP 36.8; O2SAT 96; BMI 58.2
--- NOTE | 2023-05-21 22:09 | ED_ITS ---
HPI - Extremity Problem General Chief complaint: Extremity Problem Stated complaint: R leg cellulitis, numbness, swelling to ankle Time Seen by Provider: 05/21/23 22:05 Source: patient Mode of arrival: ambulatory Limitations: no limitations History of Present Illness HPI Narrative: This is a 22-year-old male history of obesity and cellulitis presenting with right lower extremity pain, redness, swelling ongoing for the past 6 months, it has not gone away according to patient. Also reporting intermittent chest discomfort for the past week. Unable to tell me what makes it better or worse. Mild pain at this time substernal in nature, nonradiating. No associated shortness of breath. Not on hormone replacement therapy, no recent travel, nonsmoker. No history of DVT or PE. No fevers, chills, headache, vision changes, dizziness and weakness Related Data Previous Rx's Medication Instructions Recorded doxycycline hyclate 100 mg tablet 100 mg PO BID #28 tabs 07/28/21 cyclobenzaprine 10 mg tablet 10 mg PO TID PRN muscle spasm #14 09/09/21 tabs ibuprofen 600 mg tablet 600 mg PO Q6H PRN pain #30 tabs 09/09/21 cyclobenzaprine 10 mg tablet 10 mg PO TID PRN muscle spasm #14 03/14/22 tabs ibuprofen 800 mg tablet 800 mg PO Q8H PRN pain #20 tabs 03/14/22 lidocaine 5 % topical patch 1 patch topical DAILY #15 ea 03/14/22 methocarbamol 750 mg tablet 750 mg PO Q8H PRN muscle spasm #15 03/30/22 tabs cephalexin 500 mg capsule 500 mg PO QID 7 days #28 caps 11/07/22 doxycycline hyclate 100 mg capsule 100 mg PO BID 7 days #14 caps 11/07/22 cephalexin 500 mg tablet 500 mg PO Q6H 7 days #28 tabs 05/21/23 doxycycline hyclate 100 mg capsule 100 mg PO BID 7 days #14 caps 05/21/23 Allergies Allergy/AdvReac Type Severity Reaction Status Date / Time No Known Allergies Allergy Verified 05/21/23 20:53 Review of Systems 2 Review of Systems: Yes all other systems are reviewed and are negative PMFSH Past Medical History Attestation statement: The following information was validated with the patient. Source: old records reviewed and nursing notes reviewed Medical History No pertinent past medical history Surgical History Status post labral repair of shoulder No pertinent past surgical history Family History Family History Other No family history of coronary artery disease Social History Social History Household Members: Other Household Members Other:: mother Housing: Apartment Alcohol intake: current Alcohol intake frequency: does not drink Patient Tobacco Use Status: Never used Tobacco Advance Directives: No Advance Directives Information Provided: No service: No Current occupational status: employed Physical Exam 2 Vital Signs: Vital Signs: Last Vital Signs Temp 98.3 F 05/21/23 20:54 Pulse 67 05/21/23 20:54 Resp 20 05/21/23 20:54 BP 143/83 H 05/21/23 20:54 Pulse Ox 96 05/21/23 20:54 O2 Del Method Room Air 05/21/23 20:54 BMI result Body Mass Index 58.2 vss Appearance: Alert.? Oriented X3.? No acute distress.? Head: Normocephalic, atraumatic, no step-offs or deformities Eyes: Pupils equal, round and reactive to light.? Neck: Normal inspection.? Neck supple.? CVS: Normal heart rate and rhythm.? Pulses normal.? Respiratory: No respiratory distress.? Breath sounds normal.? Skin: Skin warm and dry.? Normal skin color.? Normal skin turgor.? Extremities: 3+ non pitting edema to b/l LE.? No calf ttp b/l/ negative mer b/l. 5/5 strength to bilateral upper and lower extremities . Normal sensation distally. Cap refil <2 seconds. Slight errythema to the right lateral aspect of right calf w/ small abrasions noted ( image below). 2+ dp,at,pt pulses equal and b/l. Neuro: Oriented X 3.? No motor deficit.? No sensory deficit. CN 2-12 intact Course Reevaluation(s) Reevaluation #1: CBC unremarkable appears to be around patient's baseline. With a normocytic anemia. Chemistry no acute findings requiring intervention. Troponin negative, nonischemic EKG. Slightly elevated inflammatory marker likely secondary to possible cellulitis to right lower extremity. Coags unremarkable. Negative D- dimer. Unlikely PE, DVT. Heart score of 1 low risk for MACE. Plan is for discharge home with p.o. antibiotics. Advised to return new or worsening symptoms. Educated patient on diagnosis and treatment plan, answered all question, patient verbalizes understanding. At this time patient will be discharged home, advised to return with new or worsening symptoms. Educated on worrisome signs and symptoms and when to return. At this time I feel comfortable discharge home. Time: 23:46 Medical Decision Making Medical Decision Making [facility] Narrative: 1010 22-year-old male presents with concerns of cellulitis right leg due to swelling, tingling to right lower extremity Physical exam 3+ non pitting edema to b/l LE.? No calf ttp b/l/ negative mer b/l. 5/5 strength to bilateral upper and lower extremities . Normal sensation distally. Cap refil <2 seconds. Slight errythema to the right lateral aspect of right calf w/ small abrasions noted ( image below). 2+ dp,at,pt pulses equal and b/l. History and physical exam consistent with possible early cellulitis versus dependent edema of bilateral lower extremities. Unlikely CHF, DVT, arterial occlusion, acute threat to [place], neurovascular compromise. Plan at this time labs Differential Diagnosis Differential Diagnoses: The differential diagnosis associated with the presentation includes History and physical exam consistent with possible early cellulitis versus dependent edema of bilateral lower extremities. Unlikely CHF, DVT, arterial occlusion, acute threat to [place], neurovascular compromise. Admission/Observation Consideration of admission/observation: Escalation of care including admission/observation considered Lab Data [facility] Lab Attestation statement: I reviewed the patient's lab results. 05/21/23 22:51 05/21/23 22:52 Labs: Lab Results 05/21/23 05/21/23 Range/Units 22:51 22:52 WBC 8.2 (4.8-10.8) X10*3/uL RBC 4.37 L (4.60-5.80) X10*6/uL Hgb 12.6 L (14.0-18.0) g/dl Hct 37.5 L (42.0-52.0) % MCV 85.8 (80.0-98.0) fL MCH 28.8 (27.0-33.0) pg MCHC 33.6 (31.0-36.0) g/dl RDW 12.5 (11.0-16.0) % Plt Count 220 (160-400) X10*3/uL MPV 10.2 (9.4-12.4) fL Immature Gran % (Auto) 0.4 (0.0-0.4) % Neut % (Auto) 46.1 (45-73) % Lymph % (Auto) 40.4 H (20-40) % [place]uckolls % (Auto) 6.7 (2-11) % Eos % (Auto) 6.2 H (0-4) % Baso % (Auto) 0.2 (0-2) % Lymph # (Auto) 3.3 (1.2-4.9) X10*3/uL [place]olls # (Auto) 0.6 (0.1-1.2) X10*3/uL Eos # (Auto) 0.5 H (0.0-0.4) X10*3/uL Baso # (Auto) 0.0 (0.0-0.2) X10*3/uL Abs Immat Gran (auto) 0.03 (0.00-0.03) X10*3/uL Absolute Neuts (auto) 3.8 (2.0-8.3) x10*3/uL Absolute Nucleated RBC 0.000 (0.0-0.012) X10*3/uL Nucleated RBC % (auto) 0.0 (0.0-0.2) /100WBC PT 12.3 (11.1-13.3) SEC INR 1.0 (0.9-1.1) D-Dimer High Sensitivty < 150 NG/ML Sodium 141 (135-145) mmol/L Potassium 3.8 (3.3-5.1) mmol/L Chloride 109 H (96-108) mmol/L Carbon Dioxide 27 (22-29) mmol/L Anion Gap 9 L (12-20) BUN 18 H (9-16) mg/dL Creatinine 0.95 (0.5-1.4) mg/dL Estim Creat Clear Calc 228.8 Estimated GFR > 60 Random Glucose 100 (60-115) mg/dL Calcium 9.0 (8.4-10.2) mg/dL Total Bilirubin 0.3 (0.0-1.0) mg/dL AST 22 (5-37) U/L ALT 28 (0-40) U/L Alkaline Phosphatase 75 (39-117) U/L Troponin I High Sens < 2.7 (<3.5-35.0) ng/L C-Reactive Protein 0.85 H (< or = 0.50) mg/dL Total Protein 6.8 (6.5-8.0) g/dL Albumin 4.0 (3.5-5.0) g/dL Chronic Conditions Patient?s care impacted by: Other (obesity ) Critical Care Time Critical Care Time Critical Care Time: No Discharge Plan Discharge Clinical Impression: Cellulitis, Swelling of both lower extremities Patient Disposition: Home, Self-Care Instructions: Cellulitis (ED) Additional Instructions: Take your medications as prescribed. If you were prescribed antibiotics today, it is important that you take your medication to their entirety, do not skip any doses, do not finish them early. Follow-up with your primary care provider this week. Return to the emergency department with new or worsening symptoms. Such as fevers, chills, chest pain, shortness of breath, nausea, vomiting, dizziness, headache, vision changes, lethargy In case of emergency call 911 Prescriptions: New doxycycline hyclate 100 mg capsule 100 mg PO BID 7 Days Qty: 14 0RF cephalexin 500 mg tablet 500 mg PO Q6H 7 Days Qty: 28 0RF No Action doxycycline hyclate 100 mg tablet 100 mg PO BID Qty: 28 0RF cyclobenzaprine 10 mg tablet 10 mg PO TID PRN (Reason: muscle spasm) Qty: 14 0RF ibuprofen 600 mg tablet 600 mg PO Q6H PRN (Reason: pain) Qty: 30 0RF cyclobenzaprine 10 mg tablet 10 mg PO TID PRN (Reason: muscle spasm) Qty: 14 0RF ibuprofen 800 mg tablet 800 mg PO Q8H PRN (Reason: pain) Qty: 20 0RF lidocaine 5 % adhesive patch,medicated 1 patch topical DAILY Qty: 15 0RF Rx Instructions: leave on most painful area for up to 12 hrs methocarbamol 750 mg tablet 750 mg PO Q8H PRN (Reason: muscle spasm) Qty: 15 0RF cephalexin 500 mg capsule 500 mg PO QID 7 Days Qty: 28 0RF doxycycline hyclate 100 mg capsule 100 mg PO BID 7 Days Qty: 14 0RF Referrals: Physician,Unknown J [Primary Care Provider] - 2 days Stand Alone Forms: Work/School Release
--- NOTE | 2023-05-21 22:20 | ECG_ITS ---
Test Reason : cp Blood Pressure : / mmHG Vent. Rate : 061 BPM Atrial Rate : 061 BPM P-R Int : 140 ms QRS Dur : 116 ms QT Int : 412 ms P-R-T Axes : 000 -21 -03 degrees QTc Int : 414 ms Normal sinus rhythm Normal ECG No previous ECGs available Referred By: Nevaeh Mendes Electronically Signed By:YASMANY KAPLAN MD
[2023-05-21 22:56] LABS: MANUAL DIFF FLAG NO
[2023-05-21 22:58] LABS: Basophils Percent Auto 0.2 % (0-2); Eosinophils Absolute Auto 0.5 X10*3/uL (0.0-0.4); Eosinophils Percent Auto 6.2 % (0-4); Hematocrit 37.5 % (42.0-52.0); Hemoglobin 12.6 g/dl (14.0-18.0); Imm Gran Abs Auto 0.03 X10*3/uL (0.00-0.03); Imm Gran Pct Auto 0.4 % (0.0-0.4); Lymphocytes Absolute Auto 3.3 X10*3/uL (1.2-4.9); Lymphocytes Percent Auto 40.4 % (20-40); Mean Corpuscular HGB Conc 33.6 g/dl (31.0-36.0); Mean Corpuscular Hemoglobin 28.8 pg (27.0-33.0); Mean Corpuscular Volume 85.8 fL (80.0-98.0); Mean Platelet Volume 10.2 fL (9.4-12.4); Monocytes Absolute Auto 0.6 X10*3/uL (0.1-1.2); Monocytes Percent Auto 6.7 % (2-11); Neutrophils Absolute Auto 3.8 x10*3/uL (2.0-8.3); Neutrophils Percent Auto 46.1 % (45-73); Platelet Count 220 X10*3/uL (160-400); Red Blood Count 4.37 X10*6/uL (4.60-5.80); Red Cell Distribution Width 12.5 % (11.0-16.0); White Blood Count 8.2 X10*3/uL (4.8-10.8)
[2023-05-21 23:11] LABS: Alanine Aminotransferase 28 U/L (0-40); Alkaline Phosphatase 75 U/L (39-117); Anion Gap 9 (12-20); Aspartate Amino Transferase 22 U/L (5-37); Bilirubin Total 0.3 mg/dL (0.0-1.0); Blood Urea Nitrogen 18 mg/dL (9-16); C Reactive Protein 0.85 mg/dL (< or = 0.50); Carbon Dioxide 27 mmol/L (22-29); Chloride 109 mmol/L (96-108); Creatinine Clr Calc Pharmacy 228.8; Estimated Glomerular Filt Rate > 60; Glucose Random 100 mg/dL (60-115); Potassium 3.8 mmol/L (3.3-5.1); Sodium 141 mmol/L (135-145); Total Protein 6.8 g/dL (6.5-8.0)
[2023-05-21 23:13] LABS: Prothrombin Time 12.3 SEC (11.1-13.3)
[2023-05-21 23:19] LABS: Troponin-I High Sensitivity < 2.7 ng/L (<3.5-35.0)
[2023-05-21 23:40] LABS: D Dimer High Sensitivity < 150 NG/ML
[2023-05-21 23:47] LABS: Erythrocyte Sedimentation Rate 6 MM/HR (0-15)
[2023-05-22 00:12] VITALS: BP 124/68; PULSE 63; RESP 16; TEMP 36.8; O2SAT 96
[2023-05-22 00:16] VITALS: BP 124/68; PULSE 63; RESP 16; TEMP 36.8; O2SAT 96
== END 2023-05-22 00:17 | disposition home or self-care (01) ==
PROVIDERS: Physician Assistant; Emergency Provider Emergency Medicine Emergency Medical Services
DX: L03.115 Cellulitis of right lower limb (principal); M79.89 Other specified soft tissue disorders
CPT/HCPCS: 36415; 80053; 84484; 85025; 85379; 85610; 85652; 86140; 93005; 99283; 99284

== ENCOUNTER → 2023-05-21 22:20 | Outpatient (BNV) | payer OTHER, SELFPAY | PROVIDERS: Emergency Provider Emergency Medicine Emergency Medical Services; Visit Provider Internal Medicine Cardiovascular Disease | DX: R07.9 Chest pain, unspecified (principal) | CPT/HCPCS: 93010 ==